=== PATIENT | male | born 1955 | race Caucasian/White ===

== ENCOUNTER 2017-04-11 09:44 | Outpatient (CLI) | payer OTHER ==
--- NOTE | 2017-04-11 16:21 | XRAY Report ---
THREE VIEW THORACIC SPINE: 04/11/2017 CLINICAL INDICATION: Chronic pain. FINDINGS: AP, lateral, and swimmers views of the thoracic spine demonstrate degenerative disk diseas e. There is no evidence of fracture or subluxation. No paraspinal hematoma is seen. IMPRESSION: MODERATE DEGENERATIVE DISK DISEASE. NO EVIDENCE OF FRACTURE. JOB #: [id number] EXT JOB #:[id number]
== END 2017-04-11 09:45 | disposition home or self-care (01) ==
LOC: DI 09:44
PROVIDERS: ATTEND Family Medicine
DX: M51.34 Other intervertebral disc degeneration, thoracic region (principal)
CPT/HCPCS: 72070

== ENCOUNTER 2019-05-31 07:07 | Outpatient (CLI) | payer OTHER ==
--- NOTE | 2019-06-01 08:59 | MRI Report ---
Reason: RT SHOLDER JOINT DERANGEMENT Procedure Date: 05/31/2019 Accession Number: [id number] / [id number] Procedure: MRI - Shoulder RT W/O CPT Code: FULL RESULT: EXAM: RIGHT SHOULDER MRI WITHOUT CONTRAST EXAM DATE: 05/31/2019 08:06 AM. CLINICAL HISTORY: Right shoulder pain. Evaluate for rotator cuff tendon tear. COMPARISON: None. TECHNIQUE: Multiplanar, multisequence T1-weighted and fluid-sensitive sequences of the shoulder without contrast. Other: None. FINDINGS: Acromioclavicular Region: The acromion is type II. Moderate acromioclavicular joint osteoarthritis, with small foci of subchondral edema at the distal clavicle and acromion, as well as inferior marginal osteophytes at the distal clavicle that narrow the supraspinatus outlet. The coracoacromial and coracoclavicular ligaments are intact. Fluid within the subacromial-subdeltoid bursa. Glenohumeral Region: No subluxation. No effusion or loose bodies. The articular cartilage is unremarkable. The glenohumeral ligaments and joint capsule are unremarkable. Bone Marrow: No fracture, marrow edema or bone lesions. Labrum: Circumferential intermediate signal within the labrum, with fluid discretely undermining the labrum from the 1 o'clock position of the superior labrum through the posterior labrum and into the inferior labrum at the 12 o'clock position. Musculature/Rotator Cuff: Full-thickness tear of the distal supraspinatus tendon at the footprint measuring 1.5 cm in anterior posterior dimension, with torn tendon fibers retracted to the humeral apex. Shallow partial-thickness articular-sided tear of the anterior infraspinatus tendon measuring 0.5 cm in anterior posterior dimension and superimposed on mild tendinosis. Teres minor is normal. Shallow partial-thickness articular-sided tear of the cranial fibers of the subscapularis tendon superimposed on mild tendinosis. No edema or fatty atrophy. Biceps Tendon: Medial subluxation of the long head biceps tendon from the bicipital groove, with mild superimposed tendinosis and partial tearing of the intra-articular long head biceps tendon. Other: The subcutaneous tissues are unremarkable. IMPRESSION: 1. Full-thickness tear of the distal supraspinatus tendon at the footprint, measuring 1.5 cm in anterior posterior dimension and retracted to the humeral apex. 2. Shallow partial-thickness articular-sided tears of the anterior infraspinatus tendon and cranial subscapularis tendon with mild superimposed tendinosis. 3. Medial subluxation of the long head biceps tendon from the bicipital groove, with partial tearing and mild tendinosis of the intra-articular long head biceps tendon. 4. Extended SLAP tear versus circumferential degenerative tear of the glenoid labrum. 5. Moderate acromioclavicular joint osteoarthritis, with inferior marginal osteophytes at the distal clavicle that narrow the supraspinatus tendon outlet. RADIA
== END 2019-05-31 07:08 | disposition home or self-care (01) ==
LOC: DI 07:07
PROVIDERS: ATTEND Family Medicine
DX: S43.491A Other sprain of right shoulder joint, initial encounter (principal); M24.811 Other specific joint derangements of right shoulder, not elsewhere classified; M75.101 Unspecified rotator cuff tear or rupture of right shoulder, not specified as traumatic; M19.011 Primary osteoarthritis, right shoulder; M25.711 Osteophyte, right shoulder; M75.81 Other shoulder lesions, right shoulder

== ENCOUNTER 2020-04-26 13:40 | Outpatient (CLI) | payer OTHER ==
--- NOTE | 2020-04-26 16:12 | XRAY Report ---
PROCEDURE: Thoracic Spine 2 View INDICATIONS: CERVICAL RADICULOPATHY, THORACIC BACK PAIN SPASM TECHNIQUE: 3 views of the thoracic spine were acquired. COMPARISON: None. FINDINGS: Bones: No fractures or dislocations. No suspicious bony lesions. 12 pairs of ribs are noted, and a ppear intact where visualized. Multilevel bridging anterior aspect of present within the lumbar spin e. Multilevel disc space narrowing is present. Soft tissues: No paravertebral stripe thickening. IMPRESSION: Multilevel disc bulges as well as osteophytes as above. Reviewed by: Roro Wallace MD on 04/26/2020 4:11 PM PDT Approved by: Roro Wallace MD on 04/26/2020 4:11 PM PDT Station ID: [id number]
--- NOTE | 2020-04-26 16:13 | XRAY Report ---
PROCEDURE: Cervical Spine 2 View INDICATIONS: Left-sided neck pain TECHNIQUE: 3 view(s) of the cervical spine were acquired. COMPARISON: None. FINDINGS: Bones: No fractures or dislocations to the C7 T1 level. The lateral masses of C1 appear intact on t he odontoid view. No suspicious bony lesions. There is moderate to severe degenerative disc space n arrowing at C5-6, C6-7 with anterior osteophytes at these levels. Multilevel uncovertebral arthropath y is present. Soft tissues: No prevertebral soft tissue swelling. IMPRESSION: Multilevel degenerative changes most severe at C5-6 and C6-7. Reviewed by: Roro Wallace MD on 04/26/2020 4:12 PM PDT Approved by: Roro Wallace MD on 04/26/2020 4:12 PM PDT Station ID: [id number]
== END 2020-04-26 13:41 | disposition home or self-care (01) ==
LOC: DI 13:40
PROVIDERS: ATTEND Family Medicine
DX: M47.22 Other spondylosis with radiculopathy, cervical region (principal); M51.24 Other intervertebral disc displacement, thoracic region; M25.78 Osteophyte, vertebrae
CPT/HCPCS: 72040; 72070

== ENCOUNTER 2020-04-27 11:48 | Emergency (ER) | payer OTHER ==
--- NOTE | 2020-04-27 13:41 | ED Physician Documentation ---
PD HPI OPHTHO - Stated complaint Stated Complaint: FOREIGN OBJECT IN L EYE - Chief complaint Chief Complaint: Heent - History obtained from History obtained from: Patient - History of Present Illness Timing - onset: How many days ago (2) Timing - duration: Days (2) Timing - details: Abrupt onset, Still present Location: Left Quality / character: Aching Associated symptoms: FB sensation (he felt like he got something in left eye. Thought it was cat hair. Persistent irritation with some redness, no discharge. Is watering more.) Contributing factors: No: Exposed to conjunctivitis, Wears contacts, Work related Recently seen: Not recently seen Review of Systems Constitutional: denies: Fever, Chills Eyes: reports: Irritation. denies: Decreased vision, Photophobia, Discharge Nose: denies: Rhinorrhea / runny nose, Congestion Throat: denies: Sore throat Respiratory: denies: Cough PD PAST MEDICAL HISTORY - Past Medical History Cardiovascular: Hypertension, High cholesterol Endocrine/Autoimmune: HyPOthyroidism Psych: Depression - Past Surgical History Past Surgical History: Yes Ortho: Carpal Tunnel surgery - Present Medications Home Medications: Ambulatory Orders Medication Instructions Recorded Confirmed Levothyroxine Sodium [Synthroid] 50 mcg PO 03/31/13 08/13/15 Olopatadine HCl [Patanol] 5 ml OP 03/31/13 08/13/15 Simvastatin [Zocor] 10 mg PO QPM 03/31/13 08/13/15 Telmisartan/Hydrochlorothiazid 1 each PO 03/31/13 08/13/15 [Micardis Hct 40-12.5 mg Tablet] Mometasone Furoate [Nasonex] 17 gm 08/13/15 08/13/15 Ketotifen Fumarate 2 drops LEFTEYE TID #3 drops 04/27/20 Sulfacetamide Sodium 3 drops LEFTEYE QID 3 Days #1 04/27/20 bottle - Allergies Allergies/Adverse Reactions: Allergies Allergy/AdvReac Type Severity Reaction Status Date / Time No Known Drug Allergies Allergy Verified 04/27/20 12:03 - Social History Does the pt smoke?: No Smoking Status: Never smoker Does the pt drink ETOH?: Yes Does the pt have substance abuse?: No - Immunizations Immunizations are current?: Yes PD ED PE NORMAL - Vitals Vital signs reviewed: Yes - General General: Alert and oriented X 3, No acute distress, Well developed/nourished - HEENT HEENT: PERRL, EOMI, Other (some hyperemia of left eye. No discharge. No FB seen. Swept under lip with qtip. Staining showing small uptake at 10 o'clock position. ) Results - Vitals Vitals: Vital Signs - 24 hr 04/27/20 04/27/20 12:03 14:16 Temperature 36.6 C 36.8 C Heart Rate 114 H 55 L Respiratory 16 14 Rate Blood Pressure 140/82 H 128/82 H O2 Saturation 96 96 Oxygen O2 Source Room air Departure - Departure Disposition: Home, Self Care Clinical Impression: Eye irritation Corneal abrasion, left Qualifiers: Encounter type: initial encounter Qualified Code(s): S05.02XA - Injury of conjunctiva and corneal abrasion without foreign body, left eye, initial encounter Condition: Stable Record reviewed to determine appropriate education?: Yes Instructions: ED Eye Injury Corneal Abrasion Follow-Up: PÉREZ WALL [Primary Care Provider] - Prescriptions: Ketotifen Fumarate 2 drops LEFTEYE TID #3 drops Sulfacetamide Sodium 3 drops LEFTEYE QID 3 Days #1 bottle Comments: I do not see any residual foreign body at this time. There is some redness and swelling of the conjunctivo-. There is a small superficial abrasion in the upper medial corner of the eye. We can treat this with antibiotic drops and antihistamine drops for potential local reaction or early infection given the worsening symptoms you are having. Recheck if not improved well over the next couple of days. Discharge Date/Time: 04/27/20 14:18
[2020-04-27 14:17] VITALS: BP 128/82
== END 2020-04-27 14:18 | disposition home or self-care (01) ==
LOC: ED 11:48
DX: S05.02XA Injury of conjunctiva and corneal abrasion without foreign body, left eye, initial encounter (principal); X58.XXXA Exposure to other specified factors, initial encounter; H11.432 Conjunctival hyperemia, left eye; I10 Essential (primary) hypertension
CPT/HCPCS: 99283

== ENCOUNTER 2021-04-30 06:27 | Emergency (ER) | payer OTHER ==
[2021-04-30 06:42] VITALS: BP 177/78
[2021-04-30] MEDS ORDERED: BUFFERED LIDOCAINE 10 ML SYRINGE SUBQ STA (07:07)
[2021-04-30] MEDS ORDERED: TETANUS/DIPHTHERIA/PERTUSSIS 0.5 ML SYRINGE IM ONE (07:08)
--- NOTE | 2021-04-30 07:10 | ED Physician Documentation ---
PD HPI UPPER EXT INJURY - Stated complaint Stated Complaint: LT THUMB LAC - Chief complaint Chief Complaint: Laceration - History obtained from History obtained from: Patient - Additonal information Additional information: Right-handed gentleman cut his left thumb with a knife at home just prior to arrival. Pain is minimal. Review of Systems Constitutional: reports: Reviewed and negative Eyes: reports: Reviewed and negative Ears: reports: Reviewed and negative Nose: reports: Reviewed and negative PD PAST MEDICAL HISTORY - Past Medical History Cardiovascular: Hypertension, High cholesterol Endocrine/Autoimmune: HyPOthyroidism Psych: Depression - Past Surgical History Past Surgical History: Yes General: Hiatal hernia repair Ortho: Carpal Tunnel surgery - Present Medications Home Medications: Ambulatory Orders Medication Instructions Recorded Confirmed Levothyroxine Sodium [Synthroid] 50 mcg PO 03/31/13 08/13/15 Olopatadine HCl [Patanol] 5 ml OP 03/31/13 08/13/15 Simvastatin [Zocor] 10 mg PO QPM 03/31/13 08/13/15 Telmisartan/Hydrochlorothiazid 1 each PO 03/31/13 08/13/15 [Micardis Hct 40-12.5 mg Tablet] Mometasone Furoate [Nasonex] 17 gm 08/13/15 08/13/15 Ketotifen Fumarate 2 drops LEFTEYE TID #3 drops 04/27/20 Sulfacetamide Sodium 3 drops LEFTEYE QID 3 Days #1 04/27/20 bottle - Allergies Allergies/Adverse Reactions: Allergies Allergy/AdvReac Type Severity Reaction Status Date / Time No Known Drug Allergies Allergy Verified 04/27/20 12:03 - Social History Does the pt smoke?: No Smoking Status: Never smoker Does the pt drink ETOH?: Yes Does the pt have substance abuse?: No - Immunizations Immunizations are current?: Yes - POLST Patient has POLST: No PD ED PE NORMAL - Vitals Vital signs reviewed: Yes - General General: Alert and oriented X 3, No acute distress - HEENT HEENT: PERRL, EOMI - Neck Neck: No bony TTP - Extremities Extremities: Other (1-1/2 cm laceration on the dorsum of the thumb at the level of the mid proximal phalanx. No distal neurovascular compromise.) - Neuro Neuro: Alert and oriented X 3, Normal speech Results - Vitals Vitals: Vital Signs - 24 hr 04/30/21 06:37 Temperature 36.8 C Heart Rate 76 Respiratory 17 Rate Blood Pressure 177/78 H O2 Saturation 99 Oxygen O2 Source Room air Procedures - Laceration (location) L thumb Length in cm: 1.5 Wound type: Linear, Into subcut fat Neurovascular status: Sensory intact, Motor intact, Vascular intact Anesthesia: Lidocaine 1%, With bicarb Wound preparation: Irrigated copiously NS Skin layer closure: Nylon, Interrupted, Size #-0 - enter number (4-0), Sutures - enter # (3) Other: Patient tolerated well, No complications, Neurovascular intact, Tetanus booster given Departure - Departure Disposition: Home, Self Care Clinical Impression: Laceration Condition: Good Record reviewed to determine appropriate education?: Yes Instructions: ED Laceration Hand Comments: Come back for any signs of infection which would include: Redness, swelling, drainage, increased pain, or fevers. You can wash it soap and water. Keep it covered and moist with bacitracin ointment which is available over the counter; avoid neosporin. Follow-up with your physician in 14 days for suture removal.
== END 2021-04-30 07:38 | disposition home or self-care (01) ==
LOC: ED 06:27
DX: S61.012A Laceration without foreign body of left thumb without damage to nail, initial encounter (principal); W26.0XXA Contact with knife, initial encounter; Y93.89 Activity, other specified
CPT/HCPCS: 12001; 90471; 99282; 99283

== ENCOUNTER 2021-09-15 07:45 | Outpatient (CLI) | payer OTHER ==
--- NOTE | 2021-09-15 09:16 | MRI Report ---
PROCEDURE: Thoracic Spine W/O INDICATIONS: PAIN IN THORACIC SPINE TECHNIQUE: Noncontrast sagittal T1 spine echo and T2 fast spin echo, sagittal STIR, axial T1 and T2 fast spin ec ho through the thoracic spine. COMPARISON: Plain films of the thoracic spine dated 04/26/2020 FINDINGS: Image quality: Excellent. Alignment and Curvature: There is normal bony alignment. Bone Marrow: Marrow is of normal overall signal. No acute vertebral body compression fractures. Spinal Cord: Visualized spinal cord is normal in size and signal. Paraspinous Soft Tissues: No paravertebral masses. Miscellaneous: On axial images, central canal and foramina appear widely patent at all scanned level s. IMPRESSION: Negative evaluation of the thoracic spine. No evidence of neural impingement. Reviewed by: Poli Darling MD on 09/15/2021 9:15 AM PST Approved by: Poli Darling MD on 09/15/2021 9:15 AM PST Station ID: [id number]
== END 2021-09-15 07:46 | disposition home or self-care (01) ==
LOC: DI 07:45
PROVIDERS: ATTEND Family Medicine
DX: M62.830 Muscle spasm of back (principal); M54.6 Pain in thoracic spine

== ENCOUNTER 2022-05-09 08:19 | Outpatient (CLI) | payer OTHER ==
--- NOTE | 2022-05-09 10:49 | MRI Report ---
PROCEDURE: Thoracic Spine W/O INDICATIONS: OTH SYMPTOMS AND SIGNS INVOLVING THE MUSCULOSKELET TECHNIQUE: Noncontrast sagittal T1 spine echo and T2 fast spin echo, sagittal STIR, axial T1 and T2 fast spin ec ho through the thoracic spine. COMPARISON: 09/15/2021 FINDINGS: Image quality: Excellent. Alignment and Curvature: Normal thoracic vertebral body height and alignment. Bone Marrow: No suspicious focal marrow signal abnormality. No bone marrow edema. Spinal Cord: Normal morphology and signal intensity of the cervical cord. There is no syrinx. Regional Soft Tissues: Prevertebral and paraspinous soft tissues are unremarkable. Miscellaneous: On axial images, central canal and foramina appear widely patent at all scanned level s. IMPRESSION: Normal thoracic spine MRI. Reviewed by: Porter Vazquez MD on 05/09/2022 10:48 AM PDT Approved by: Porter Vazquez MD on 05/09/2022 10:48 AM PDT Station ID: [id number]
== END 2022-05-09 08:20 | disposition home or self-care (01) ==
LOC: DI 08:19
PROVIDERS: ATTEND Physician Assistant
DX: R29.898 Other symptoms and signs involving the musculoskeletal system (principal)

== ENCOUNTER 2022-05-15 09:28 | Outpatient (CLI) | payer OTHER ==
--- NOTE | 2022-05-15 15:56 | MRI Report ---
PROCEDURE: Lumbar Spine W/O INDICATIONS: RIGHT FOOT DROP TECHNIQUE: Noncontrast sagittal T1 spin echo and T2 fast echo, sagittal STIR, axial T1 and T2 fast spin echo thr ough the lumbar spine. In cases with scoliosis, additional coronal T2 fast spin echo may be performe d. COMPARISON: None. Degenerative anterolisthesis of L5 on S1 measuring 5 mm. Otherwise normal alignment. Vertebral body h eights maintained. No suspicious focal marrow signal abnormality or bone marrow edema. Normal positio n and appearance of the conus. Regional prevertebral and paraspinous soft tissues are unremarkable. T he partially visualized unenhanced for intraperitoneal visceral structures demonstrate no acute findi ng. T12-L1: No spinal canal or neural foraminal stenosis. L1-L2: No spinal canal or neural foraminal stenosis. L2-L3: No spinal canal or neural foraminal stenosis. L3-L4: Diffuse disc bulge flattens the ventral thecal sac. No mass effect upon the traversing L4 ne rve roots. Foraminal components of the disc bulge and facet hypertrophy combine to produce moderate l eft and mild right neural foraminal stenosis. L4-L5: Diffuse disc bulge flattens the ventral thecal sac. No mass effect upon the traversing L5 ne rve roots. Foraminal components of the disc bulge and facet hypertrophy combine to produce moderate l eft and mild right neural foraminal stenosis. L5-S1: Diffuse disc bulge with mild displacement of the descending S1 nerve roots in both subarticu lar zones. Foraminal components of the disc bulge and facet hypertrophy combine to produce moderate b ilateral neural foraminal narrowing. IMPRESSION: Moderate lower lumbar spine degenerative changes as detailed above. In the setting of ri ght foot drop, the findings could be due to possible moderate neural foraminal narrowing on the right from L3-L4 through L5-S1. There is no significant mass effect on the nerve roots within the spinal c anal to explain this radiculopathy. Reviewed by: Porter Vazquez MD on 05/15/2022 3:55 PM PDT Approved by: Porter Vazquez MD on 05/15/2022 3:55 PM PDT Station ID: [id number]
== END 2022-05-15 09:29 | disposition home or self-care (01) ==
LOC: DI 09:28
PROVIDERS: ATTEND Physician Assistant
DX: M47.816 Spondylosis without myelopathy or radiculopathy, lumbar region (principal); M47.817 Spondylosis without myelopathy or radiculopathy, lumbosacral region; M48.061 Spinal stenosis, lumbar region without neurogenic claudication; M48.07 Spinal stenosis, lumbosacral region; M51.36 Other intervertebral disc degeneration, lumbar region; M51.37 Other intervertebral disc degeneration, lumbosacral region